=== PATIENT | female | born 1975 | race Two or more races ===

== ENCOUNTER 2017-03-11 17:41 | Emergency (ER) | payer BC ==
[~2017-03-11] VITALS: Ht 160 cm; Wt 77.6 kg
[2017-03-11] MEDS ORDERED: CALC600T21 PO (17:55)
[2017-03-11] MEDS ORDERED: LISI30TA4 PO (17:55)
[2017-03-11] MEDS ORDERED: CENTTAB47 PO (17:55)
[2017-03-11] MEDS ORDERED: VITA100072 PO (17:55)
[2017-03-11] MEDS ORDERED: HYDR12.55 PO (17:55)
[2017-03-11] MEDS ORDERED: TURM450C PO (17:55)
[2017-03-11] MEDS ORDERED: BIOT50004 PO (17:55)
[2017-03-11 20:05] LABS: BASO % 0.5 % (0.0-1.0); EOS # 0.1 K/mm3 (0.0-0.50); LARGE UNSTAINED CELL # 0.2 K/mm3 (0.0-0.4); LARGE UNSTAINED CELL % 2.9 % (0.0-4.0); LYMPH # 2.1 K/mm3 (1.5-4.5); LYMPH % 30.8 % (24.0-44.0); MEAN CORPUSCULAR HEMOGLOBIN 28.5 pg (27.0-33.0); MEAN CORPUSCULAR HGB CONC 33.4 g/dl (32.0-36.5); MEAN CORPUSCULAR VOLUME 85.2 fl (80.0-96.0); MONO # 0.4 K/mm3 (0.0-0.8); MONO % 7.1 % (0.0-5.0); NEUTROPHILS # 3.6 K/mm3 (1.8-7.7); NEUTROPHILS % 56.7 % (36.0-66.0); PLATELET COUNT, AUTOMATED 270 k/mm3 (150-450); RED CELL DISTRIBUTION WIDTH 13.2 % (11.5-14.5); WHITE BLOOD COUNT 6.2 K/mm3 (4.0-10.0)
[2017-03-11 20:23] LABS: ALBUMIN 3.7 GM/DL (3.2-5.2); ALBUMIN/GLOBULIN RATIO 1.37 (1.00-1.93); ALKALINE PHOSPHATASE 62 U/L (45-117); ALT/SGPT 23 U/L (12-78); ANION GAP 7 MEQ/L (8-16); AST/SGOT 13 U/L (15-37); BILIRUBIN,DIRECT 0.1 MG/DL (0.0-0.2); BILIRUBIN,TOTAL 0.3 MG/DL (0.2-1.0); BLOOD UREA NITROGEN 12 MG/DL (7-18); CALCIUM LEVEL 8.9 MG/DL (8.5-10.1); CARBON DIOXIDE LEVEL 27 MEQ/L (21-32); CHLORIDE LEVEL 107 MEQ/L (98-107); CREATININE FOR GFR 0.61 MG/DL (0.55-1.02); GLOMERULAR FILTRATION RATE > 60.0 (>58); GLUCOSE, FASTING 83 MG/DL (70-105); POTASSIUM SERUM 3.6 MEQ/L (3.5-5.1); SODIUM LEVEL 141 MEQ/L (136-145); TOTAL PROTEIN 6.4 GM/DL (6.4-8.2)
[2017-03-11] MEDS ORDERED: PANTOPRAZOLE 40MG TAB (PROTONIX) PO ONE (21:15)
[2017-03-11] MEDS ORDERED: GI COCKTAIL 50ML BTL(HYOSCYAMINE/MAALOX/LIDOCAINE VISCOUS)(1:3:1) PO ONE (21:15)
[2017-03-11] MEDS ORDERED: PROT1TAB2 PO (22:00)
[2017-03-11 22:08] VITALS: BP 121/77
--- NOTE | 2017-03-12 09:07 | REP ---
CHEST PA AND LATERAL: 03/11/2017. Clinical history: Chest pain. Findings: No prior studies. The two-view show the lung choi well inflated. CP angles sharply defined without effusion. There is no lateral pleural thickening or apical scarring. I see no dense consolidation or mass. There is some minor infrahilar prominence of markings suggesting some fibrosis or subsegmental atelectasis. No air bronchograms. The heart, mediastinal and hilar contours normal. Airway intact. Bony thorax shows no focal lesion. Impression: 1. Some minor infrahilar fibrotic or subsegmental atelectatic change, left greater than right, but no dense consolidation with air bronchograms, pleural effusion, cardiomegaly, edema or other acute finding. Signed by Wes Ventura MD 03/12/2017 03:00 P
--- NOTE | 2017-03-14 08:38 | ECGEPIP ---
Stationary ECG Study [facility] - ED Test Date: 2017-03-11 Pat Name: CAROL RUSSELL Department: Room: - Gender: F [employer]: MALKA : [id number] Requested By: Rosalino Sandoval Order Number: [id number] Reading MD: Alan Paris Measurements Intervals Palms Rate: 71 P: 12 ND: 178 QRS: 86 QRSD: 93 T: 11 QT: 358 QTc: 392 Interpretive Statements SINUS RHYTHM NO PRIOR Electronically Signed On 03-14-2017 8:38:03 EDT by Alan Paris
== END 2017-03-11 22:09 | disposition home or self-care (01) ==
LOC: M ED 19:05
DX: K21.9 Gastro-esophageal reflux disease without esophagitis (principal); I10 Essential (primary) hypertension; Z98.84 Bariatric surgery status; Z88.5 Allergy status to narcotic agent; Z88.8 Allergy status to other drugs, medicaments and biological substances; Z79.899 Other long term (current) drug therapy

== ENCOUNTER → 2017-03-30 | Outpatient (REF) | payer BC ==
[~2017-03-30] MED LIST: BIOT50004 PO; CALC600T21 PO; CENTTAB47 PO; HYDR12.55 PO; LISI30TA4 PO; PROT1TAB2 PO; TURM450C PO; VITA100072 PO
[2017-03-30 15:53] LABS: MAGNESIUM LEVEL 2.2 MG/DL (1.8-2.4)
[2017-03-30 15:57] LABS: VITAMIN B12 LEVEL > 2000 PG/ML (247-911)
[2017-03-30 16:16] LABS: ALBUMIN 3.8 GM/DL (3.2-5.2); ALBUMIN/GLOBULIN RATIO 1.36 (1.00-1.93); ALKALINE PHOSPHATASE 63 U/L (45-117); ALT/SGPT 21 U/L (12-78); ANION GAP 5 MEQ/L (8-16); AST/SGOT 11 U/L (15-37); BILIRUBIN,TOTAL 0.4 MG/DL (0.2-1.0); BLOOD UREA NITROGEN 15 MG/DL (7-18); CALCIUM LEVEL 8.8 MG/DL (8.5-10.1); CARBON DIOXIDE LEVEL 30 MEQ/L (21-32); CHLORIDE LEVEL 106 MEQ/L (98-107); CHOLESTEROL LEVEL 177 MG/DL (<200); CREATININE FOR GFR 0.61 MG/DL (0.55-1.02); GLOMERULAR FILTRATION RATE > 60.0 (>58); GLUCOSE, FASTING 89 MG/DL (70-105); POTASSIUM SERUM 4.5 MEQ/L (3.5-5.1); SODIUM LEVEL 141 MEQ/L (136-145); TOTAL PROTEIN 6.6 GM/DL (6.4-8.2); TRIGLYCERIDES LEVEL 60 MG/DL (<150)
== END ==
LOC: M SFHCLACO 08:23
PROVIDERS: ATTEND Physician Assistant
DX: I10 Essential (primary) hypertension (principal); K91.2 Postsurgical malabsorption, not elsewhere classified

== ENCOUNTER 2022-08-03 22:03 | Emergency (ER) | payer BC ==
[~2022-08-03] VITALS: Ht 160 cm; Wt 78.6 kg
[~2022-08-03 22:03] MED LIST changes: -CALC600T21 PO; +CALC600T60 PO; +VITA100018 PO; -VITA100072 PO
[2022-08-03 22:05] VITALS: BP 136/86
[2022-08-04] MEDS ORDERED: CHLO125TA PO (08:20)
[2022-08-04] MEDS ORDERED: IRBE75TA4 PO (08:20)
[2022-08-04] MEDS ORDERED: GEOD40CA13 PO (08:23)
[2022-08-04] MEDS ORDERED: OXCA300T14 PO (08:23)
[2022-08-04] MEDS ORDERED: RITA40CA PO (08:23)
[2022-08-04] MEDS ORDERED: SING5CHW23 PO (08:23)
== END 2022-08-04 00:20 | disposition left against medical advice (07) ==
LOC: M ED 22:03
DX: Z53.21 Procedure and treatment not carried out due to patient leaving prior to being seen by health care provider (principal)

== ENCOUNTER 2022-08-04 07:42 | Emergency (ER) | payer BC ==
[~2022-08-04] VITALS: Ht 160 cm; Wt 87.0 kg
[2022-08-04] MEDS ORDERED: CHLO125TA PO (08:20)
[2022-08-04] MEDS ORDERED: IRBE75TA4 PO (08:20)
[2022-08-04] MEDS ORDERED: OXCA300T14 PO (08:23)
[2022-08-04] MEDS ORDERED: RITA40CA PO (08:23)
[2022-08-04] MEDS ORDERED: SING5CHW23 PO (08:23)
[2022-08-04] MEDS ORDERED: GEOD40CA13 PO (08:23)
[2022-08-04 09:35] LABS: BASO % 0.3 % (0.0-1.0); EOS % 0.1 % (0.0-3.0); HEMATOCRIT 43.6 % (36.0-47.0); HEMOGLOBIN 15.2 g/dl (12.0-15.5); LYMPH # 0.8 10^3/uL (1.5-5.0); LYMPH % 6.9 % (24.0-44.0); MEAN CORPUSCULAR HEMOGLOBIN 29.7 pg (27.0-33.0); MEAN CORPUSCULAR HGB CONC 34.9 g/dl (32.0-36.5); MEAN CORPUSCULAR VOLUME 85.3 fl (80.0-96.0); MONO # 0.6 10^3/uL (0.0-0.8); MONO % 5.5 % (2.0-8.0); NEUTROPHILS # 10.1 10^3/uL (1.5-8.5); NEUTROPHILS % 86.7 % (36.0-66.0); PLATELET COUNT, AUTOMATED 394 10^3/uL (150-450); RED BLOOD COUNT 5.11 10^6/uL (4.00-5.40); WHITE BLOOD COUNT 11.6 10^3/uL (4.0-10.0)
[2022-08-04 12:44] LABS: BLOOD UREA NITROGEN 6 MG/DL (7-18); CALCIUM LEVEL 9.6 MG/DL (8.5-10.1); CARBON DIOXIDE LEVEL 28 MEQ/L (21-32); CHLORIDE LEVEL 94 MEQ/L (98-107); FREE T4 1.07 NG/DL (0.76-1.46); GLOMERULAR FILTRATION RATE > 60.0 (>58); GLUCOSE, FASTING 83 MG/DL (70-100); MAGNESIUM LEVEL 2.1 MG/DL (1.8-2.4); POTASSIUM SERUM 3.1 MEQ/L (3.5-5.1); SODIUM LEVEL 129 MEQ/L (136-145); THYROID STIMULATING HORMONE 0.742 uIU/ML (0.358-3.740)
[2022-08-04] MEDS ORDERED: NS 1,000 ML IV ONE (12:50)
[2022-08-04 14:42] VITALS: BP 135/82
== END 2022-08-04 14:45 | disposition home or self-care (01) ==
LOC: M ED 07:42
DX: R55 Syncope and collapse (principal); I10 Essential (primary) hypertension; N20.0 Calculus of kidney; Z98.84 Bariatric surgery status

== ENCOUNTER 2024-04-15 17:47 | Emergency (ER) | payer BC ==
[~2024-04-15] VITALS: Ht 160 cm; Wt 53.8 kg
[~2024-04-15 17:47] MED LIST changes: -BIOT50004 PO; +BIOT5CAP8 PO; +CHLO125TA PO; +GEOD40CA13 PO; +IRBE75TA11 PO; +MONT5TAB7 PO; +OXCA300T14 PO; +RITA40CA PO
[2024-04-15 18:17] LABS: BASO # 0.1 10^3/uL (0.0-0.2); BASO % 0.6 % (0.0-1.0); EOS % 0.1 % (0.0-3.0); HEMATOCRIT 40.6 % (36.0-47.0); HEMOGLOBIN 14.2 g/dl (12.0-15.5); LYMPH % 21.1 % (24.0-44.0); MEAN CORPUSCULAR VOLUME 85.8 fl (80.0-96.0); MONO # 0.8 10^3/uL (0.0-0.8); MONO % 8.2 % (2.0-8.0); NEUTROPHILS # 6.7 10^3/uL (1.5-8.5); NEUTROPHILS % 69.8 % (36.0-66.0); PLATELET COUNT, AUTOMATED 362 10^3/uL (150-450); RED BLOOD COUNT 4.73 10^6/uL (4.00-5.40); WHITE BLOOD COUNT 9.6 10^3/uL (4.0-10.0)
[2024-04-15 18:31] LABS: INR 1.04; PARTIAL THROMBOPLASTIN TIME 27.5 SECONDS (24.8-34.2); PROTHROMBIN TIME 13.3 SECONDS (12.5-14.5)
[2024-04-15 18:41] LABS: CK-MB VALUE MASS < 1.0 NG/ML (<3.6); LIPASE 41 U/L (12-53)
[2024-04-15 18:44] LABS: ALBUMIN 3.8 G/DL (3.2-5.2); ALKALINE PHOSPHATASE 61 U/L (46-116); ALT/SGPT 24 U/L (7.0-40); AST/SGOT 14 U/L (<34); BILIRUBIN,DIRECT 0.2 MG/DL (<0.4); BILIRUBIN,TOTAL 0.5 MG/DL (0.3-1.2); BLOOD UREA NITROGEN 11 MG/DL (9-23); CALCIUM LEVEL 9.5 MG/DL (8.5-10.1); CARBON DIOXIDE LEVEL 30 MMOL/L (20-31); CHLORIDE LEVEL 104 MMOL/L (98-107); CPK CREATINE PHOSPHOKINASE 51 U/L (34-145); CREATININE FOR GFR 0.63 MG/DL (0.55-1.30); GLOMERULAR FILTRATION RATE > 60.0 (>58); GLUCOSE, FASTING 99 MG/DL (60-100); MB/CK RELATIVE INDEX 1.96 (< OR =4); POTASSIUM SERUM 3.2 MMOL/L (3.5-5.1); SODIUM LEVEL 138 MMOL/L (136-145); TOTAL PROTEIN 6.6 G/DL (5.7-8.2)
[2024-04-15 18:45] LABS: THYROID STIMULATING HORMONE 0.995 uIU/ML (0.55-4.78)
[2024-04-15 18:46] LABS: FREE T4 1.29 NG/DL (0.89-1.76)
[2024-04-15] MEDS ORDERED: DULO1CAP6 PO (19:30)
[2024-04-15] MEDS ORDERED: MONT10TA97 PO (19:30)
[2024-04-15] MEDS ORDERED: MULTTAB61 PO (19:30)
[2024-04-15] MEDS ORDERED: CALC600T60 PO (19:30)
[2024-04-15] MEDS ORDERED: SUCR1TA PO (19:30)
[2024-04-15] MEDS ORDERED: METH20TA29 PO (19:30)
[2024-04-15] MEDS ORDERED: OMEP40CA4 PO ×2 (19:30→21:01)
[2024-04-15] MEDS ORDERED: CLOB0.057 TOP (19:30)
[2024-04-15] MEDS ORDERED: TRAM50TA2 PO (19:30)
[2024-04-15] MEDS ORDERED: POTA-150 PO (19:30)
[2024-04-15] MEDS ORDERED: CALC0.006 TOP (19:30)
[2024-04-15] MEDS ORDERED: VITA1CAP25 PO (19:30)
[2024-04-15] MEDS ORDERED: NALO4SPR3 NARES (19:30)
[2024-04-15] MEDS ORDERED: VITA500065 PO (19:30)
[2024-04-15] MEDS ORDERED: HYDR-3363 PO ×2 (19:30)
[2024-04-15] MEDS ORDERED: LEVOTAB10 PO (19:30)
[2024-04-15] MEDS ORDERED: HOME MED LIST COMPLETE! XX SCH (19:35)
[2024-04-15 19:51] LABS: CK-MB VALUE MASS < 1.0 NG/ML (<3.6)
[2024-04-15 19:52] LABS: CPK CREATINE PHOSPHOKINASE 48 U/L (34-145); MB/CK RELATIVE INDEX 2.08 (< OR =4)
[2024-04-15] MEDS ORDERED: ISOVUE-370 76% 100ML VIAL As Ordered ONE (20:16)
[2024-04-15] MEDS: MAALOX 30 ML SUSP *UDC PO ONE (20:20)
[2024-04-15] MEDS: POTASSIUM CHLORIDE 10MEQ SR TABLET PO ONE (20:20)
[2024-04-15] MEDS ORDERED: MAALSUS19 PO (21:01)
[2024-04-15 21:20] VITALS: BP 124/82; TEMP 98.1; O2SAT 98
== END 2024-04-15 21:23 | disposition home or self-care (01) ==
LOC: M ED 17:47
DX: K21.9 Gastro-esophageal reflux disease without esophagitis (principal); R94.31 Abnormal electrocardiogram [ECG] [EKG]; I10 Essential (primary) hypertension; F31.9 Bipolar disorder, unspecified; Z88.6 Allergy status to analgesic agent; Z88.5 Allergy status to narcotic agent; Z88.8 Allergy status to other drugs, medicaments and biological substances; Z79.810 Long term (current) use of selective estrogen receptor modulators (SERMs); Z79.899 Other long term (current) drug therapy
CPT/HCPCS: 36415; 71045; 71275; 80048; 80076; 82550; 82553; 83690; 83880; 84439; 84443; 84484; 85025; 85610; 85730; 93005; 93041; 94760; 99285; Q9967

== ENCOUNTER → 2024-09-06 | Outpatient (REF) ==
[~2024-09-06] MED LIST changes: +CALC0.006 TOP; +CLOB0.057 TOP; +DULO1CAP6 PO; +HYDR-3363 PO; +LEVOTAB10 PO; +MAALSUS19 PO; +METH20TA29 PO; +MONT10TA97 PO; +MULTTAB61 PO; +NALO4SPR3 NARES; +OMEP40CA4 PO; +POTA-150 PO; +SUCR1TA PO; +TRAM50TA2 PO; +VITA1CAP25 PO; +VITA500065 PO
== END ==
LOC: M EMP 07:54
PROVIDERS: ATTEND Family Medicine
DX: Z11.52 Encounter for screening for COVID-19 (principal)